=== PATIENT | male | born 1985 | race Caucasian/White ===

== ENCOUNTER 2018-05-06 19:12 | Emergency (ER) | payer OTHER ==
[~2018-05-06] VITALS: Ht 165.1 cm; Wt 77.1 kg
[~2018-05-06 19:12] MED LIST: CYCLOBENZAPRINE5 M2 PO; PREDNISONE10 M2 PO
[2018-05-06 22:10] LABS: ABSOLUTE BASOPHIL COUNT 0 /CUMM (0.0-0.2); ABSOLUTE EOSINOPHIL COUNT 0.1 /CUMM (0.0-0.7); ABSOLUTE GRANULOCYTE CT 8.8 /CUMM (1.4-6.5); ABSOLUTE LYMPH COUNT 1.6 /CUMM (1.2-3.4); ABSOLUTE MONOCYTE COUNT 0.2 /CUMM (0.10-0.60); BASOPHIL % 0.2 % (0.0-2.0); EOSINOPHIL % 0.6 % (0-5); GRANULOCYTE % 82.2 % (42.2-75.2); HEMATOCRIT 45.7 % (42-52); MEAN CORPUSCULAR HGB 30.9 PG (27.0-31.0); MEAN CORPUSCULAR HGB CONC 34.4 G/DL (33.0-37.0); MEAN CORPUSCULAR VOLUME 89.7 FL (80.0-94.0); MEAN PLATELET VOLUME 8.9 FL (7.4-10.4); PLATELET COUNT 253 /CUMM (130-400); RBC DISTRIBUTION WIDTH 13.2 % (11.5-14.5); WHITE BLOOD CELL COUNT 10.8 /CUMM (4.8-10.8)
[2018-05-06 22:13] VITALS: BP 141/88
[2018-05-06] MEDS ORDERED: LEVSIN-SL0.125 MG SL (23:09)
[2018-05-06] MEDS ORDERED: ZOFRAN ODT4 M1 SL (23:09)
--- NOTE | 2018-05-06 23:10 | ED GI/GU/ABDOMINAL COMPLAINT ---
History of Present Illness General Chief Complaint: General Adult Stated Complaint: +N Source: patient, family, old records Exam Limitations: no limitations Vital Signs & Intake/Output Vital Signs & Intake/Output Vital Signs Date Time Temp Pulse Resp B/P B/P Pulse O2 O2 Flow FiO2 Mean Ox Delivery Rate 05/064 99 Room Air 05/06 2213 96.6 94 16 141/88 99 Room Air 05/06 1919 96.6 85 20 162/91 100 Room Air Allergies Coded Allergies: aspirin (WAS TOLD A KID 05/06/18) Reconcile Medications No Known Home Medications Triage Note: PT TO TRIAGE C/O HR FLUCTUATING ON APPLE WATCH AT WORK. HR 85 IN TRIAGE. 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 DENIES CP/VOMITING/DIAPHORESIS. DENIES DIZZINESS/LIGHTHEADEDNESS. DENIES ANY NEW FOODS TODAY. Triage Nurses Notes Reviewed? yes Onset: Afternoon Duration: hour(s):, changing over time, intermittent Timing: recent history Quality/Severity: aching, moderate, vomiting Location: epigastric Radiation: no radiation Activities at Onset: rest Prior Abdominal Problems: none Past Sexual History: Unobtainable at this time Modifying Factors: Worsens With: eating. Associated Symptoms: abdominal pain, loss of appetite, nausea/vomiting HPI: Several hours prior to admission patient complains of slow heart rate fast heart rate associated with nausea. Prior to admission he vomited with epigastric discomfort mild to moderate in severity nonradiating. He denies fever chills diarrhea chest pain cough shortness breath headache dysuria rash bleeding. Past History Travel History Traveled to [place] past 21 day No Medical History Any Pertinent Medical History? see below for history Neurological: NONE EENT: NONE Cardiovascular: NONE Respiratory: asthma Gastrointestinal: NONE Hepatic: NONE Renal: NONE Musculoskeletal: NONE Psychiatric: NONE Endocrine: NONE Blood Disorders: NONE Cancer(s): NONE CRM BUSINESS ANALYST/Reproductive: NONE Surgical History Surgical History: non-contributory Psychosocial History What is your primary language [place] Tobacco Use: Never used Family History Hx Contributory? No Review of Systems Review of Systems Constitutional: Reports: see HPI, malaise. EENTM: Reports: no symptoms. Respiratory: Reports: no symptoms. Cardiovascular: Reports: see HPI. GI: Reports: see HPI, abdominal pain, nausea, vomiting. Genitourinary: Reports: no symptoms. Musculoskeletal: Reports: no symptoms. Skin: Reports: no symptoms. Neurological/Psychological: Reports: no symptoms. Hematologic/Endocrine: Reports: no symptoms. Immunologic/Allergic: Reports: no symptoms. All Other Systems: Reviewed and Negative Physical Exam Physical Exam General Appearance: well developed/nourished, alert, awake, anxious, mild distress Head: atraumatic, normal appearance Eyes: Bilateral: normal appearance, PERRL, EOMI, normal inspection. Ears, Nose, Throat, Mouth: hearing grossly normal, moist mucous membrane Neck: normal inspection, supple, full range of motion, normal alignment Respiratory: normal breath sounds, chest non-tender, no respiratory distress, quiet respiration, lungs clear Cardiovascular: regular rate/rhythm, normal peripheral pulses, norml femoral pulses equa Peripheral Pulses: 4+ carotid (R), 4+ carotid (L) Gastrointestinal: normal bowel sounds, soft, non-tender, no organomegaly Male Genitals: normal genitalia Back: normal inspection, normal range of motion Extremities: normal range of motion, no ligament instability Neurologic/Psych: no motor/sensory deficits, awake, alert, oriented x 3, normal gait, normal mood/affect, swimming pool maintenance II-XII nml as tested Skin: intact, normal color, warm/dry Core Measures ACS in differential dx? No Sepsis Present: No Sepsis Focused Exam Completed? No Progress Differential Diagnosis: gastritis, PUD/GERD Plan of Care: Orders Procedure Date/time Status TROPONIN LEVEL 05/06 2134 Complete MAGNESIUM 05/06 2134 Complete LIPASE 05/06 2134 Complete COMPREHENSIVE METABOLIC PANEL 05/06 2134 Complete CBC WITHOUT DIFFERENTIAL 05/06 2134 Complete Laboratory Tests 05/06/182154: Anion Gap 9, Estimated GFR > 60, BUN/Creatinine Ratio 11.3, Glucose 101 H, Calcium 9.6, Magnesium 2.0, Total Bilirubin 0.5, AST 39, ALT 55, Alkaline Phosphatase 101, Troponin I < 0.01, Total Protein 8.5 H, Albumin 4.9, Globulin 3.6, Albumin/Globulin Ratio 1.4, Lipase 191, CBC w Diff NO MAN DIFF REQ, RBC 5.10, MCV 89.7, MCH 30.9, MCHC 34.4, RDW 13.2, MPV 8.9, Gran % 82.2 H, Lymphocytes % 14.9 L, Monocytes % 2.1, Eosinophils % 0.6, Basophils % 0.2, Absolute Granulocytes 8.8 H, Absolute Lymphocytes 1.6, Absolute Monocytes 0.2, Absolute Eosinophils 0.1, Absolute Basophils 0 Initial ED EKG: none Departure Departure Time of Disposition: 2307 Disposition: HOME OR SELF CARE Condition: Stable Clinical Impression Primary Impression: Nausea and vomiting Secondary Impressions: Vaso-vagal reaction Referrals: Leda Vegas MD (PCP/Family) Departure Forms: Customer Survey General Discharge Information RELEASE- WORK Prescriptions: Current Visit Scripts Ondansetron (Zofran Odt) 1 TAB SL TID PRN n/v #10 TAB Hyoscyamine Sulfate (Levsin-Sl) 1-2 TAB SL Q4P PRN abdominal pain #30 TAB
== END 2018-05-06 23:12 ==
LOC: ERH 19:12
PROVIDERS: Emergency Medicine
DX: R55 Syncope and collapse (principal); R11.2 Nausea with vomiting, unspecified
CPT/HCPCS: 96374; 96375; J2405